=== PATIENT | male | born 1960 | race Caucasian/White ===

== ENCOUNTER 2016-09-24 06:24 | Day surgery (SDC) | payer BC ==
[~2016-09-24] VITALS: Ht 177.8 cm; Wt 63.6 kg
[~2016-09-24 06:24] MED LIST: XELO500T PO
[2016-09-24 06:38] VITALS: BP 110/77; PULSE 84; RESP 20; TEMP 97.7; O2SAT 95
[2016-09-24] MEDS ORDERED: MULTTAB67 PO (06:41)
[2016-09-24] MEDS ORDERED: LOPE7.5C PO (06:41)
[2016-09-24] MEDS ORDERED: ceFAZolin 2 GM PREMIX 50 ML - implanted port removal IV SCH (06:45)
[2016-09-24] MEDS ORDERED: SODIUM CHLORIDE 0.9% 1000 ML IV SCH (06:45)
[2016-09-24 07:29] LABS: PROTHROMBIN TIME - PATIENT 10.9 SEC (9.8-11.6)
[2016-09-24] MEDS ORDERED: MIDAZOLAM HCL 5 MG/5 ML VIAL ONE (07:44)
[2016-09-24] MEDS ORDERED: fentaNYL CITRATE 250 MCG/5 ML AMP ONE (07:45)
[2016-09-24] MEDS ORDERED: LIDOCAINE 1%/EPINEPHrine 1:100,000 SOLN 20 ML VIAL ONE (08:05)
--- NOTE | 2016-09-24 08:35 | PD.RAD ---
Post Procedure Progress Note Pre Procedure Diagnosis: (1) Colorectal cancer Post Procedure Diagnosis: (1) Colorectal cancer Procedure Date: Sep 24, 2016 Supervising Radiologist: Adrian Salgado Estimated blood loss: 2cc Anesthesia: Local, Conscious Sedation Plan of Activity Patient to Unit: ROPU Patient Condition: Good Additional Comments: Port removed from the right chest without difficulty See PACS Report for procedural detail/treatment Adrian Salgado MD Sep 24, 2016 08:35
[2016-09-24 09:01] VITALS: BP 108/62; PULSE 75; RESP 16; O2SAT 95
--- NOTE | 2016-09-24 09:01 | RADRPT ---
EXAM DATE/TIME: 09/24/2016 07:22 [place] COMPARISON: [id number] PLCMT, POWERPORT, W US, RIGHT, October 31, 2015, 8:00. INDICATIONS : History of colorectalcancer.Port no longer needed. MEDICAL HISTORY : 1. Colorectal cancer 2.Shingles 3. Spontaneous pneumothorax SURGICAL HISTORY : 1. Right infusaport 2.Colonoscopy 3. reversal of ileostomy 4. hernia repair ENCOUNTER: Initial ACUITY: > 1 year PAIN SCORE: 0/10 SEDATION TIME: 30 minutes 1.) 3 mg midazolam (Versed) IV 2.) 150 mcg fentanyl (Sublimaze) IV Prophylactic antibiotics were administered with appropriate pre-procedure timing. Vancomycin within 2 hrs of procedure, Ancef (or alternative) within 1 hr of procedure. PROCEDURE : 1. Removal of [id number]. 2. Conscious sedation with continuous EKG and oximetry monitoring. The risk, benefits and potential complications of [id number] removal were discussed. Written conse nt was obtained. The patient was placed supine. The chest wall was prepped in sterile fashion. Full sterile techniqu e was used, including cap, mask, sterile gloves and gown, and a large sterile sheet. Hand hygiene an d 2% chlorhexidine and/or Betadine/alcohol prep was utilized per protocol for cutaneous antisepsis. The skin and subcutaneous tissues were infiltrated with local anesthetic solution. A small incision w as made, the subcutaneous pocket was opened. The port was dissected from the subcutaneous tissues and easily removed in one piece. The pocket incision was closed with subcuticular Vicryl suture. Steri -Strips were applied. Conscious sedation was performed with the prescribed dosages and duration as above. The patient tole rated the procedure well and there were no complications. EKG and oximetry remained stable throughou t the procedure. The patient was sent to post anesthesia recovery in stable condition. CONCLUSION: Uncomplicated port removal as above. Adrian Salgado MD on September 24, 2016 at 8:59 Board Certified Radiologist. This report was verified electronically.
[2016-09-24 09:15] VITALS: BP 102/60; PULSE 71; RESP 16; O2SAT 96
[2016-09-24 09:45] VITALS: BP 109/67; PULSE 77; RESP 16; O2SAT 95
[2016-09-24 10:22] VITALS: BP 108/62; PULSE 84; RESP 16; O2SAT 95
== END 2016-09-24 10:30 | disposition home or self-care (01) ==
LOC: HROP 06:24 → HRIP 06:29 → HROP 10:30
PROVIDERS: ATTEND Internal Medicine Hematology & Oncology
DX: Z45.2 Encounter for adjustment and management of vascular access device (principal)
CPT/HCPCS: 36590; 85610; 85730; 99152; 99153; J2250; J3010